=== PATIENT | male | born 1970 | race Caucasian/White ===

== ENCOUNTER 2020-06-16 06:28 | Day surgery (SDC) | payer BC ==
[2020-06-16] MEDS ORDERED: Sodium Chloride 0.9% 1,000 ML IV SCH (07:00)
[2020-06-16] MEDS ORDERED: Midazolam 1 MG/ML 2 ML SDV ONE (07:27)
[2020-06-16] MEDS ORDERED: fentaNYL 100 MCG/2 ML SDV ONE (07:27)
[2020-06-16] MEDS ORDERED: Propofol 200 MG/20 ML SDV ONE (07:27)
--- NOTE | 2020-06-16 08:14 | OR ---
DATE OF PROCEDURE: 06/16/2020 SURGEON: Saeid Lara MD PROCEDURE: Colonoscopy. FINDINGS: Normal colonoscopy. COMPLICATIONS: None. INTEGRATION CONSULTANT: None. PREOPERATIVE DIAGNOSIS: Screening colonoscopy. POSTOPERATIVE DIAGNOSIS: Screening colonoscopy. RISKS: Risks, benefits, alternatives, and limitations including, but not limited to infection, bleeding, false positives and false negatives were explained to the patient and family who wished to proceed. PROCEDURE IN DETAIL: The patient was placed in the left lateral decubitus position. Digital rectal exam was performed without abnormality. Scope was introduced and advanced atraumatically to the ileocecal valve. A photo was taken of this. The scope was brought back to the ascending, transverse, descending colon, and retroflexed. No old or new blood. No masses. No polyps. No colitis. No diverticulosis. No abnormalities on retroflexion. Greater than 8 minutes was spent removing the scope. The patient tolerated the procedure well. Saeid Lara MD /[id number]
== END 2020-06-16 09:11 | disposition home or self-care (01) ==
LOC: JP.SDS 06:28
PROVIDERS: ATTEND Surgery
DX: Z12.11 Encounter for screening for malignant neoplasm of colon (principal)
CPT/HCPCS: J2250; J2704; J3010; J7030

== ENCOUNTER 2022-01-04 09:00 | Emergency (ER) | payer BC ==
[2022-01-04] MEDS ORDERED: Aspirin 81 MG Tab.Chew PO ONE (09:51)
[2022-01-04 10:40] LABS: ESTIMATED GFR 73 mL/min (>60)
[2022-01-04] MEDS ORDERED: Ketorolac 30 MG/ML SDV IVPUSH ONE (12:33)
[2022-01-04] MEDS ORDERED: Ketorolac 30 MG/ML SDV IM ONE (13:22)
== END 2022-01-04 15:44 | disposition home or self-care (01) ==
LOC: JP.ED 09:00
DX: R07.89 Other chest pain (principal)
CPT/HCPCS: 36415; 71045; 80053; 84484; 85025; 93005; 96372; 99283; 99285; A9270; J1885

== ENCOUNTER 2022-04-30 07:08 | Emergency (ER) | payer BC ==
[2022-04-30] MEDS ORDERED: Ibuprofen 400 MG Tab PO ONE (08:15)
[2022-04-30] MEDS ORDERED: Lidocaine 1% 5 ML VIAL INJECT ONE (08:15)
[2022-04-30] MEDS ORDERED: Bacitracin Oint 1 GM U/D Packet TOP ONE (08:15)
== END 2022-04-30 09:04 | disposition home or self-care (01) ==
LOC: JP.ED 07:08
DX: S61.451A Open bite of right hand, initial encounter (principal); W54.0XXA Bitten by dog, initial encounter
CPT/HCPCS: 12001; 99281; 99283; A9270

== ENCOUNTER 2023-09-26 22:11 | Emergency (ER) | payer BC ==
[2023-09-26] MEDS: Ondansetron 4 MG/2 ML SDV IVPUSH ONE (22:52)
[2023-09-26] MEDS: Ketorolac 30 MG/ML SDV IVPUSH ONE (22:52)
[2023-09-26] MEDS: Sodium Chloride 0.9% 1,000 ML IV SCH (22:52)
[2023-09-26 22:55] LABS: BASOPHILS ABSOLUTE AUTO 0.05 K/uL (0.00-0.10); BASOPHILS PERCENT AUTO 0.4 % (0.1-1.3); EOSINOPHILS ABSOLUTE AUTO 0.13 K/uL (0.00-0.40); EOSINOPHILS PERCENT AUTO 1.1 % (0.0-5.4); HEMATOCRIT 43.4 % (38.4-49.7); HEMOGLOBIN 15.1 g/dL (12.9-16.9); IMMATURE GRAN ABSOLUTE AUTO 0.17 K/uL (0.00-0.23); IMMATURE GRAN PERCENT AUTO 1.4 % (0.0-0.7); LYMPHOCYTES ABSOLUTE AUTO 2.41 K/uL (0.8-3.3); LYMPHOCYTES PERCENT AUTO 20.5 % (11.4-47.7); MEAN CORPUSCULAR HEMOGLOBIN 30.7 pg (31.6-35.5); MEAN CORPUSCULAR HGB CONC 34.8 g/dL (31.6-35.5); MEAN CORPUSCULAR VOLUME 88.2 fL (81.4-99.0); MONOCYTES ABSOLUTE AUTO 0.92 K/uL (0.20-0.90); MONOCYTES PERCENT AUTO 7.8 % (3.3-12.6); NEUTROPHILS ABSOLUTE AUTO 8.06 K/uL (1.0-7.6); NEUTROPHILS PERCENT AUTO 68.8 % (40.0-78.1); PLATELET COUNT,PLT 209 K/uL (130-375); RED BLOOD CELL COUNT 4.92 M/uL (4.14-5.76); WHITE BLOOD CELL COUNT,WBC 11.7 K/uL (3.2-11.0)
[2023-09-26] MEDS: Sodium Chloride 0.9% 10 ML Syringe FLUSH PRN (22:59)
[2023-09-26 23:06] LABS: APPEARANCE,URINE CLEAR (CLEAR); BILIRUBIN,URINE NEGATIVE (NEGATIVE); COLOR,URINE YELLOW (YELLOW); GLUCOSE,URINE NEGATIVE (NEGATIVE); KETONES,URINE NEGATIVE (NEGATIVE); LEUKOCYTE ESTERASE,URINE NEGATIVE (NEGATIVE); NITRITE,URINE NEGATIVE (NEGATIVE); OCCULT BLOOD,URINE TRACE-INTACT (NEGATIVE); PH,URINE 5.5 (5.0-8.0); PROTEIN,URINE NEGATIVE (NEGATIVE); UROBILINOGEN,URINE 0.2 EU/dL (0.2-1.0)
[2023-09-26 23:11] LABS: AMORPHOUS SEDIMENT,URINE NOT SEEN; BACTERIA,URINE FEW; EPITHELIAL CELLS,URINE FEW; MUCUS,URINE FEW; WBC,URINE 0-5 (0-5)
[2023-09-26 23:15] LABS: A/G RATIO 1.2 (1.2-2.2); ALANINE AMINOTRANSFERASE,ALT 15 U/L (12-78); ALBUMIN 3.8 g/dL (3.4-5.0); ALKALINE PHOSPHATASE 56 U/L (46-116); ASPARTATE AMNIOTRANSFERASE,AST 17 U/L (15-37); BILIRUBIN TOTAL 0.8 mg/dL (0.2-1.0); BLOOD UREA NITROGEN,BUN 24 mg/dL (7-18); CALCIUM 9.1 mg/dL (8.5-10.1); CARBON DIOXIDE,CO2 27 mmol/L (21-32); CHLORIDE,CL 102 mmol/L (100-108); CREATININE 1.5 mg/dL (0.8-1.3); EST CRCL DRUG DOSING (CG) 61.79 mL/min; ESTIMATED GFR 55 mL/min (>60); GLUCOSE RANDOM 125 mg/dL (74-106); POTASSIUM,K 3.2 mmol/L (3.6-5.2); SODIUM,NA 141 mmol/L (140-148)
[2023-09-26 23:19] LABS: ANION GAP 15.2 mmol/L (5.0-14.0)
[2023-09-26] MEDS: HYDROmorphone 0.5 MG/0.5 ML Syringe IVPUSH ONE (23:33)
[2023-09-27] MEDS: Tamsulosin 0.4 MG Cap.ER PO ONE (00:30)
== END 2023-09-27 00:48 | disposition home or self-care (01) ==
LOC: JP.ED 22:11
DX: N13.2 Hydronephrosis with renal and ureteral calculous obstruction (principal); Z79.82 Long term (current) use of aspirin; Z79.899 Other long term (current) drug therapy
CPT/HCPCS: 36415; 74176; 80053; 81001; 85025; 86140; 96361; 96374; 96375; 99284; A9270; J1170; J1885; J2405; J3490; J7030